=== PATIENT | female | born 1935 | race Caucasian/White ===

== ENCOUNTER 2017-05-18 10:25 | Inpatient (IN) ==
[2017-05-13 14:40] LABS: HEMATOCRIT 38.6 % (37.0-47.0); MCH 32.3 PG (27-31); MCHC 33.7 g/dL (33-37); MCV 95.8 FL (81-99); MPV 10.1 FL (7.4-10.4); RBC 4.03 XMIL (4.2-5.4)
[2017-05-13 14:52] LABS: AGAP 8; BUN 15 mg/dL (8-22); CALCIUM 8.5 mg/dL (8.8-10.2); CHLORIDE 97 mmol/L (98-107); COSMO 271; POTASSIUM 4.6 mmol/L (3.5-5.1); SODIUM 135 mmol/L (136-145); TCO2 30 mmol/L (25-35)
--- NOTE | 2017-05-13 15:06 | EKG Report ---
Test Performed on : 05/13/2017 2:24:28 PM Test Reason : pat Blood Pressure : / mmHG Vent. Rate : 065 BPM Atrial Rate : 065 BPM P-R Int : 152 ms QRS Dur : 076 ms QT Int : 420 ms P-R-T Axes : 000 -44 057 degrees QTc Int : 436 ms Normal sinus rhythm. Left axis deviation Possible Anterior infarct , age undetermined Abnormal ECG When compared with ECG of 18-DEC-2014 10:59, Criteria for Inferior infarct are no longer present Confirmed by Torres Donovan MD ([id number]) on 05/13/2017 3:26:37 PM
[2017-05-18] MEDS ORDERED: LR 1,000 ML ONE (10:40)
[2017-05-18] MEDS ORDERED: VANCOMYCIN 1 GM/NS 1 GM/250 ML IVPB ONE (10:54)
[2017-05-18] MEDS ORDERED: QUELICIN (DOSE) ONE (12:50)
[2017-05-18] MEDS ORDERED: DIPRIVAN 1% ONE (12:50)
[2017-05-18] MEDS ORDERED: XYLOCAINE-MPF 2% ONE (12:50)
[2017-05-18] MEDS ORDERED: FENTANYL ONE (12:50)
[2017-05-18] MEDS ORDERED: NAROPIN 0.5% ONE (14:01)
[2017-05-18] MEDS ORDERED: VERSED ONE (14:09)
[2017-05-18] MEDS ORDERED: ATROPINE ONE (15:11)
[2017-05-18] MEDS ORDERED: ZOFRAN ONE (15:12)
[2017-05-18] MEDS ORDERED: DECADRON ONE (15:12)
[2017-05-18] MEDS ORDERED: EPHEDRINE ONE (15:27)
[2017-05-18] MEDS ORDERED: NS 1,000 ML ONE (16:18)
[2017-05-18] MEDS: TYLENOL PO ONE (16:40)
[2017-05-18] MEDS ORDERED: DILAUDID PCA VIAL ONE (16:57)
--- NOTE | 2017-05-18 19:39 | OPERATIVE NOTE ---
PROCEDURE DATE: 05/18/2017 PREOPERATIVE DIAGNOSES: 1. Right shoulder impingement syndrome. 2. Acromioclavicular degenerative joint disease. 3. Rotator cuff tear. POSTOP DIAGNOSES: 1. Right shoulder impingement syndrome. 2. Acromioclavicular degenerative joint disease. 3. Rotator cuff tear. PROCEDURES: Right shoulder subacromial decompression, distal clavicle resection , and arthroscopic rotator cuff repair. ANESTHESIA: General. SURGEON: Ricci Goodwin MD. ACCOUNTS RECEIVABLE COLLECTOR: Vamsi So PA-C. COMPLICATIONS: None. BLOOD LOSS: Minimal. DESCRIPTION OF PROCEDURE: The patient was brought to operative suite and placed in supine position. After successful administration of general anesthesia, patient was placed in the left lateral decubitus position with the right shoulder up. The right shoulder was then prepped and draped in the usual sterile fashion. Through the posterior arthroscopy portal, the glenohumeral joint was serially examined. She was found to have a full-thickness tear of her supraspinatus tendon. No other intraarticular pathology was identified. The scope was then moved to the subacromial space and then through a lateral portal with the [employer] wand, shaver, and a bur, subacromial decompression was performed back to flush with the posterior acromion. Then, through an anterior portal, with the [employer]thro[employer] wand, shaver, and a bur, the distal clavicle was resected 1 cm. Then the insertion site for the rotator cuff was prepared with a shaver and then two 5.5 Sherman and Nephew suture anchors with ultra Braid tape then ultra Braid suture on each one , these were placed from anterior to posterior and then the ultra Braid tape was placed, and the 2 ultra Braid sutures, and then the ultra Braid was again placed for the anterior one, and then the posterior one that was passed similarly for a total of 8 suture leads passed. The two #2 ultra Dulce Maria were then tied arthroscopically, reducing the medial border of the rotator cuff to the suture anchors, and then 2 lateral suture anchors were placed, 1 anteriorly and 1 posteriorly, securing the lateral row repair. Excellent repair was obtained under imaging. The arthroscopy instruments were removed. The incisions were closed with interrupted nylon. The patient underwent a scalene block preoperatively. A sterile dressing was applied. The patient tolerated the procedure well without complication. At the end the procedure, all counts were correct x 2. The patient was transferred to the recovery room in stable condition. cc: Ricci Goodwin MD MTDD
[2017-05-18] MEDS ORDERED: NORCO-10 PO PRN (19:43)
[2017-05-18] MEDS ORDERED: ZOFRAN IV PRN (19:49)
[2017-05-18] MEDS ORDERED: DILAUDID PCA VIAL IV PRN (19:49)
[2017-05-18] MEDS ORDERED: NARCAN IV PRN (19:49)
[2017-05-19] MEDS: ATIVAN PO SCH ×3 (03:33→22:02)
[2017-05-19] MEDS: TYLENOL PO ONE (03:34)
[2017-05-19] MEDS: TYLENOL PO SCH ×2 (03:35→04:42)
[2017-05-19] MEDS: PERIDEX MT SCH ×3 (03:36→22:02)
[2017-05-19] MEDS: ARICEPT PO SCH ×2 (03:37→22:02)
[2017-05-19] MEDS: NS 1,000 ML IV SCH ×3 (03:37→23:08)
[2017-05-19] MEDS: LR 1,000 ML IV SCH ×2 (03:38→23:08)
[2017-05-19] MEDS: TIMOPTIC 0.5% OPH SOLUTION BOTH EYES SCH (08:53)
[2017-05-19] MEDS: FISH OIL CONCENTRATE PO SCH (08:55)
[2017-05-19] MEDS: MOBIC PO SCH (08:56)
[2017-05-19] MEDS: VITAMIN B-12 PO SCH (08:56)
[2017-05-19] MEDS: ASPIRIN PO SCH (08:56)
[2017-05-19] MEDS: PROZAC PO SCH (08:56)
[2017-05-19] MEDS: PATIENT'S OWN MED PO SCH (09:47)
--- NOTE | 2017-05-19 12:44 | PROGRESS NOTE ---
DATE: 05/19/2017 SUBJECTIVE: Janett Belle is an 82-year-old female, who is postoperative day 1 from a right shoulder rotator cuff repair. She complains of continued pain with any motion of her right shoulder. OBJECTIVE: She is a well-developed, well-nourished female. She is alert, oriented, and cooperative exam. She has pain with range of motion of her shoulder, but her dressing is clean, dry, intact. Her arm is neurovascularly intact. ASSESSMENT: Stable right shoulder rotator cuff repair. PLAN: We will ask social services assistant to see her for rehab placement. I expect her to go to rehab on . We will also have physical therapy working with her range of motion of her shoulder. cc: Ricci Goodwin MD
[2017-05-20] MEDS: ATIVAN PO SCH ×2 (08:31→22:08)
[2017-05-20] MEDS: TIMOPTIC 0.5% OPH SOLUTION BOTH EYES SCH (08:32)
[2017-05-20] MEDS: VITAMIN B-12 PO SCH (08:32)
[2017-05-20] MEDS: PROZAC PO SCH (08:32)
[2017-05-20] MEDS: ASPIRIN PO SCH (08:32)
[2017-05-20] MEDS: MOBIC PO SCH (08:32)
[2017-05-20] MEDS: FISH OIL CONCENTRATE PO SCH (08:32)
[2017-05-20] MEDS: PERIDEX MT SCH ×2 (08:32→22:08)
[2017-05-20] MEDS: PATIENT'S OWN MED PO SCH (08:43)
[2017-05-20] MEDS ORDERED: D/C PCA XX ONE (10:48)
--- NOTE | 2017-05-20 13:01 | PROGRESS NOTE ---
DATE: 05/20/2017 SUBJECTIVE: Janett Belle is an 82-year-old female, who is postoperative day 2 from a right shoulder rotator cuff tear. She states her pain is much improved. OBJECTIVE: She is a well-developed, well-nourished female. She is alert, oriented, and cooperative with exam. Her dressing is clean, dry, intact. Her arm is neurovascularly intact. IMPRESSION: Right rotator cuff repair. PLAN: Today, we will continue working with physical therapy. She will likely go to the rehab facility later in the week. cc: Ricci Goodwin MD
[2017-05-20] MEDS: NORCO-7.5 PO PRN (22:07)
[2017-05-20] MEDS: ARICEPT PO SCH (22:08)
[2017-05-21] MEDS: TIMOPTIC 0.5% OPH SOLUTION BOTH EYES SCH (08:09)
[2017-05-21] MEDS: ASPIRIN PO SCH (08:09)
[2017-05-21] MEDS: PERIDEX MT SCH ×2 (08:09→22:12)
[2017-05-21] MEDS: ATIVAN PO SCH ×2 (08:10→22:12)
[2017-05-21] MEDS: MOBIC PO SCH (08:11)
[2017-05-21] MEDS: PROZAC PO SCH (08:11)
[2017-05-21] MEDS: VITAMIN B-12 PO SCH (08:11)
[2017-05-21] MEDS: FISH OIL CONCENTRATE PO SCH (08:11)
--- NOTE | 2017-05-21 14:13 | PROGRESS NOTE ---
DATE: 05/21/2017 SUBJECTIVE:: Janett Belle is an 82-year-old female who is postoperative day 3 from a right shoulder rotator cuff repair. She has no complaints. She is resting comfortably in a chair. OBJECTIVE: general: She is a well-developed, well-nourished female. She is alert, oriented, and cooperative with the exam. extremities: She has minimal pain with range of motion of her shoulder. Arm is neurovascularly intact. skin: Her incisions were clean, dry and intact, without sign of infection. IMPRESSION: Stable right total rotator cuff repair. PLAN: We will continue working with Physical Therapy. She will likely go to rehab tomorrow. cc: Ricci Goodwin MD
[2017-05-21] MEDS: ARICEPT PO SCH (22:11)
[2017-05-21] MEDS: NORCO-7.5 PO PRN (22:13)
[2017-05-22] MEDS: NORCO-7.5 PO PRN (03:57)
[2017-05-22] MEDS: PATIENT'S OWN MED PO SCH ×2 (07:31→08:50)
[2017-05-22] MEDS: TIMOPTIC 0.5% OPH SOLUTION BOTH EYES SCH (08:49)
[2017-05-22] MEDS: ATIVAN PO SCH (08:50)
[2017-05-22] MEDS: MOBIC PO SCH (08:50)
[2017-05-22] MEDS: ASPIRIN PO SCH (08:50)
[2017-05-22] MEDS: PROZAC PO SCH (08:50)
[2017-05-22] MEDS: PERIDEX MT SCH (08:50)
[2017-05-22] MEDS: VITAMIN B-12 PO SCH (08:50)
[2017-05-22] MEDS: FISH OIL CONCENTRATE PO SCH (08:50)
[2017-05-22 11:58] VITALS: BP 154/55
--- NOTE | 2017-05-22 13:19 | DISCHARGE SUMMARY ---
ADMISSION DATE: 05/18/2017 DISCHARGE DATE: 05/22/2017 DISCHARGE DIAGNOSIS: Right shoulder rotator cuff repair. DISCHARGE MEDICATIONS: See discharge medication list. DISPOSITION: Patient discharged to rehab with instructions for right shoulder rotator cuff repair protocol for physical therapy. Instructed to return for any signs or symptoms of infection or deep venous thrombosis. Instructed to return to see Dr. Goodwin next . HOSPITAL COURSE: On the day of admission, patient underwent a right rotator cuff repair. Her postoperative course was unremarkable. At discharge, she is afebrile, tolerating a regular diet, ambulating well with physical therapy. Her wounds are clean, dry, intact. She has good early range of motion of her shoulder. She is discharged to rehab in stable condition with instructions to follow up as described above. cc: Ricci Goodwin MD
--- NOTE | 2017-05-22 13:43 | Diag Imaging Result Doc PS360 ---
EXAM: CHEST-1 VIEW HISTORY: rehab TECHNIQUE: Portable upright AP COMPARISON: 01/12/2017 FINDINGS: The lungs are well expanded. The heart is not enlarged. The vessels are not distended. There are no infiltrates. No effusion identified. IMPRESSION: Negative exam.. Electronically signed by Gregorio Solitario 05/22/2017 1:41 PM
== END 2017-05-22 15:13 ==
LOC: OR 10:25 → 4N 19:31 → INTOOBSV 19:31
PROVIDERS: ADMIT Orthopaedic Surgery; ATTEND Orthopaedic Surgery